=== PATIENT | male | born 1990 | race Caucasian/White ===

== ENCOUNTER 2016-10-18 05:15 | Inpatient (IN) | payer OTHER ==
[~2016-10-18] VITALS: Ht 175.3 cm; Wt 101.3 kg
[2016-10-18] VITALS (12 sets, daily range): BP systolic 122–165; BP diastolic 54–77; PULSE 79–110; TEMP 97.7–98.4
[2016-10-18 11:59] LABS: CALCIUM 8.9 mg/dL (8.4-10.2); CREATININE, serum 1.42 mg/dL (0.66-1.25); HEMATOCRIT 51.6 % (42.0-52.0); MEAN CELL VOLUME 88 fl (80.0-100.0); MEAN CORPUSCULAR HEMOGLOBIN 31 pg (27.0-31.0); MEAN CORPUSCULAR HGB CONC 35 g/dl (33.0-37.0); MEAN PLATELET VOLUME 12.1 fl (7.4-10.4); PLATELET COUNT 244 K/mm3 (130-400); POTASSIUM 4.8 mmol/L (3.4-5.0); RED BLOOD COUNT 5.85 M/mm3 (4.20-5.60); REDCELL DISTRIBUTION WIDTH-CV 12.7 % (11.5-14.5); WHITE BLOOD COUNT 19.7 K/mm3 (4.8-10.8)
[2016-10-18 12:00] LABS: HEMOGLOBIN 18.1 g/dl (13.5-18.0)
[2016-10-19] VITALS (10 sets, daily range): BP systolic 107–155; BP diastolic 39–86; PULSE 88–100; TEMP 97.5–98.5
[2016-10-19 07:48] LABS: CALCIUM 9.3 mg/dL (8.4-10.2); CREATININE, serum 0.94 mg/dL (0.66-1.25); POTASSIUM 4.3 mmol/L (3.4-5.0)
[2016-10-19 11:03] LABS: HEMATOCRIT 47.3 % (42.0-52.0); HEMOGLOBIN 16.5 g/dl (13.5-18.0); MEAN CELL VOLUME 88 fl (80.0-100.0); MEAN CORPUSCULAR HEMOGLOBIN 31 pg (27.0-31.0); MEAN CORPUSCULAR HGB CONC 35 g/dl (33.0-37.0); MEAN PLATELET VOLUME 12.6 fl (7.4-10.4); PLATELET COUNT 198 K/mm3 (130-400); RED BLOOD COUNT 5.35 M/mm3 (4.20-5.60); REDCELL DISTRIBUTION WIDTH-CV 12.7 % (11.5-14.5)
[2016-10-19 11:04] LABS: WHITE BLOOD COUNT 21.6 K/mm3 (4.8-10.8)
[2016-10-19 11:05] LABS: ADD PATHOLOGY DIFF REVIEW NO
[2016-10-19 13:41] LABS: BAND 13 % (0-10); NEUTROPHILS 67 % (42.0-75.2); PLATELET ESTIMATE NORMAL (NORMAL); TOTAL CELLS COUNTED 100
[2016-10-20 02:05] VITALS: BP 125/65; PULSE 76; TEMP 98.6
[2016-10-20 05:15] VITALS: BP 151/79; PULSE 94; TEMP 98.2
[2016-10-20 08:43] VITALS: BP 172/87; PULSE 92
[2016-10-20 10:45] VITALS: BP 162/84; PULSE 105; TEMP 98.7
[2016-10-20 13:14] VITALS: BP 159/77; PULSE 98; TEMP 98.7
== END 2016-10-20 14:21 | disposition home or self-care (01) | DRG 660 ==
LOC: SDCO 05:15 → SURG 07:30 → EDSTATUS 07:30 → SURG 13:00
PROVIDERS: Urology
PROC: 8E0W4CZ Robotic Assisted Procedure of Trunk Region, Percutaneous Endoscopic Approach (ICD-10-PCS; 2016-10-18)
PROC: 0TJB8ZZ Inspection of Bladder, Via Natural or Artificial Opening Endoscopic (ICD-10-PCS; 2016-10-18)
PROC: 0TB14ZZ Excision of Left Kidney, Percutaneous Endoscopic Approach (ICD-10-PCS; principal; 2016-10-18 07:30)
DX: N13.1 Hydronephrosis with ureteral stricture, not elsewhere classified (principal); Q63.0 Accessory kidney; Q62.5 Duplication of ureter; N28.89 Other specified disorders of kidney and ureter
CPT/HCPCS: A4315; A9284; C1713; C1758; C1769; C9113; J0690; J1100; J1170; J1885; J2250; J2270; J2405; J2704; J2765; J3010; J7030; J7120

== ENCOUNTER → 2017-02-17 | Outpatient (CLI) | payer OTHER | LOC: MHCPAIN 11:38 | DX: G89.29 Other chronic pain (principal); M47.817 Spondylosis without myelopathy or radiculopathy, lumbosacral region; M54.16 Radiculopathy, lumbar region; M53.3 Sacrococcygeal disorders, not elsewhere classified | CPT/HCPCS: G0463 ==

== ENCOUNTER → 2018-07-05 | Outpatient (CLI) | payer OTHER | LOC: COL.RAD 10:06 | DX: Q62.31 Congenital ureterocele, orthotopic (principal); N28.82 Megaloureter ==